=== PATIENT | male | born 1965 | race Caucasian/White ===

== ENCOUNTER 2019-08-04 21:48 | Inpatient (IN) | payer MEDICAID ==
[~2019-08-04] VITALS: Ht 167.6 cm; Wt 78.0 kg
[2019-08-04] MEDS ORDERED: SODIUM CHLORIDE 0.9% 1,000 ML IV ONE (22:01)
[2019-08-04] MEDS ORDERED: SODIUM CHLORIDE 0.9% 1000ML BAG (SEPSIS BOLUS) IV ONE (22:30)
[2019-08-04 22:50] LABS: BASOPHILS % 0.4 % (0.0-2.0); EOSINOPHILS % 0.1 % (0.0-5.0); HEMATOCRIT. 45.5 % (42.0-52.0); HEMOGLOBIN. 15.2 g/dL (14.0-18.0); LYMPHOCYTES % 13.1 % (20.0-50.0); MEAN CORPUSCULAR HEMOGLOBIN 29.4 pg (28.0-32.0); MEAN CORPUSCULAR VOLUME 88.2 fL (80.0-94.0); MEAN PLATELET VOLUME 8.7 fl (7.4-10.4); MONOCYTES % 9.3 % (2.0-8.0); NEUTROPHILS % 77.1 % (40.0-76.0); PLATELET 178 x1000/uL (130-400); RED BLOOD CELL COUNT 5.15 mill/uL (4.7-6.1); RED CELL DISTRIBUTION WIDTH 14.3 % (11.6-14.6)
[2019-08-04 22:54] LABS: CHLORIDE 89 mEq/L (98-107)
[2019-08-04 22:55] LABS: INR 1.4; PARTIAL THROMBOPLASTIN TIME 29.8 sec (23.4-31.0); PROTHROMBIN TIME 13.7 sec (9.6-11.0)
[2019-08-04 22:58] LABS: ETHANOL BLOOD 208 mg/dL
[2019-08-04 23:03] LABS: BETA HYDROXYBUTYRATE 0.1 mMol/L (0.0-0.3)
[2019-08-04 23:05] LABS: CLARITY URINE CLEAR (CLEAR); COLOR URINE YELLOW (YELLOW); KETONES URINE NEGATIVE (NEGATIVE); LEUKOCYTE ESTERASE URINE NEGATIVE (NEGATIVE); NITRITE URINE NEGATIVE (NEGATIVE); OCCULT BLOOD URINE NEGATIVE (NEGATIVE); PH URINE 5.5 (4.5-8.0); PROTEIN URINE 1+ (NEGATIVE); SPECIFIC GRAVITY URINE 1.023 (1.005-1.030); UROBILINOGEN URINE 0.2 E.U./dL (0.2-1.0)
[2019-08-04 23:15] LABS: *AMPHETAMINES SCREEN URINE NEGATIVE (NEGATIVE); *BARBITURATES SCREEN URINE NEGATIVE (NEGATIVE); *BENZODIAZEPINES SCREEN URINE NEGATIVE (NEGATIVE); *COCAINE SCREEN URINE NEGATIVE (NEGATIVE); CANNABINOID URINE SCREEN NEGATIVE (NEGATIVE); METHADONE URINE SCREEN NEGATIVE (NEGATIVE); OPIATES URINE SCREEN NEGATIVE (NEGATIVE); PHENCYCLIDINE URINE SCREEN NEGATIVE (NEGATIVE)
[2019-08-04] MEDS ORDERED: POTASSIUM CHLORIDE 20MEQ TABLET SR PO ONE (23:45)
[2019-08-05] MEDS ORDERED: INSULIN LISPRO 100 UNITS/ML SUBCUT NR
[2019-08-05] MEDS ORDERED: METOPROLOL TARTRATE 5MG/5ML VIAL IV ONE (00:45)
[2019-08-05] MEDS ORDERED: CLONIDINE 0.1MG TABLET PO PRN (01:30)
[2019-08-05] MEDS ORDERED: DEXTROSE 50% WATER 50ML SYRINGE IV PRN (01:30)
[2019-08-05] MEDS ORDERED: ONDANSETRON HCL 4MG/2ML INJ IV PRN (01:30)
[2019-08-05] MEDS ORDERED: ACETAMINOPHEN 325MG TABLET PO PRN (01:30)
[2019-08-05] MEDS ORDERED: LORAZEPAM 2MG/ML CPJ IV PRN (01:30)
[2019-08-05] MEDS ORDERED: DIPHENHYDRAMINE 50MG/ML VIAL IV PRN (01:30)
[2019-08-05] MEDS ORDERED: MAGNESIUM/ALUMINUM HYDROXIDE/SIMETHICONE 30ML UDC PO PRN (01:30)
[2019-08-05] MEDS ORDERED: POTASSIUM CHLORIDE INJ 40 MEQ in DEXT 5% WATER 250 ML IV NR (02:00)
[2019-08-05] MEDS ORDERED: MVI, ADULT NO.1 10 ML, FOLIC ACID 1 MG, THIAMINE HCL 100 MG in SODIUM CHLORIDE 0.9% 1,0... IV SCH ×4 (02:00)
[2019-08-05 02:29] VITALS: BP 145/95
[2019-08-05 02:31] VITALS: BP 145/95
[2019-08-05] MEDS ORDERED: METOPROLOL TARTRATE 25MG TABLET PO SCH (03:00)
[2019-08-05] MEDS ORDERED: METF-416 PO (03:22)
[2019-08-05] MEDS: METOPROLOL TARTRATE 25MG TABLET PO SCH ×3 (05:42→21:14)
[2019-08-05] MEDS: CHLORDIAZEPOXIDE 25MG CAPSULE PO SCH ×3 (05:42→21:14)
[2019-08-05] MEDS: DILTIAZEM HCL 60MG TABLET PO SCH ×3 (05:42→21:14)
[2019-08-05 07:35] LABS: BASOPHILS % 0.4 % (0.0-2.0); EOSINOPHILS % 0.4 % (0.0-5.0); HEMATOCRIT. 37.4 % (42.0-52.0); HEMOGLOBIN. 12.8 g/dL (14.0-18.0); LYMPHOCYTES % 17.9 % (20.0-50.0); MEAN CORPUSCULAR HEMOGLOBIN 29.9 pg (28.0-32.0); MEAN CORPUSCULAR VOLUME 87.5 fL (80.0-94.0); MEAN PLATELET VOLUME 8.9 fl (7.4-10.4); MONOCYTES % 9.6 % (2.0-8.0); NEUTROPHILS % 71.7 % (40.0-76.0); PLATELET 161 x1000/uL (130-400); RED BLOOD CELL COUNT 4.27 mill/uL (4.7-6.1); RED CELL DISTRIBUTION WIDTH 14.5 % (11.6-14.6)
[2019-08-05] MEDS: BLOOD SUGAR DIAGNOSTIC STRIP TEST SCH ×4 (07:40→21:11)
[2019-08-05 08:00] VITALS: BP 144/97
[2019-08-05] MEDS: SODIUM CHLORIDE 0.9% 1,000 ML IV SCH ×2 (08:31→20:00)
[2019-08-05] MEDS: FAMOTIDINE 20MG/2ML VIAL IV SCH ×2 (08:32→21:11)
[2019-08-05 08:44] LABS: CHLORIDE 101 mEq/L (98-107)
[2019-08-05] MEDS: INSULIN LISPRO 100 UNITS/ML SUBCUT SCH ×4 (08:50→21:14)
[2019-08-05] MEDS: INSULIN GLARGINE UD 100 UNITS/ML SYR SUBCUT SCH (11:54)
[2019-08-05 11:57] VITALS: BP 158/110
[2019-08-05] MEDS ORDERED: MAGNESIUM 4 G PREMIX 100 ML IV NR (14:00)
[2019-08-05 16:00] VITALS: BP 166/112
[2019-08-05] MEDS: BENAZEPRIL 10MG TABLET PO SCH (17:15)
[2019-08-05] MEDS: METFORMIN HCL 850MG TABLET PO SCH (18:10)
[2019-08-05 20:00] VITALS: BP 140/92
[2019-08-05] MEDS: TEMAZEPAM 15MG CAPSULE PO PRN (22:48)
[2019-08-06] VITALS: BP 148/97
[2019-08-06 04:00] VITALS: BP 136/91
[2019-08-06] MEDS: SODIUM CHLORIDE 0.9% 1,000 ML IV SCH (05:13)
[2019-08-06] MEDS: DILTIAZEM HCL 60MG TABLET PO SCH ×3 (06:04→21:48)
[2019-08-06] MEDS: CHLORDIAZEPOXIDE 25MG CAPSULE PO SCH ×3 (06:04→21:47)
[2019-08-06] MEDS: METOPROLOL TARTRATE 25MG TABLET PO SCH ×2 (06:04→13:21)
[2019-08-06 07:07] LABS: BASOPHILS % 0.8 % (0.0-2.0); HEMATOCRIT. 39.4 % (42.0-52.0); HEMOGLOBIN. 13.4 g/dL (14.0-18.0); LYMPHOCYTES % 34.2 % (20.0-50.0); MEAN CORPUSCULAR HEMOGLOBIN 29.9 pg (28.0-32.0); MEAN CORPUSCULAR VOLUME 87.9 fL (80.0-94.0); MEAN PLATELET VOLUME 8.8 fl (7.4-10.4); MONOCYTES % 9.8 % (2.0-8.0); NEUTROPHILS % 53.2 % (40.0-76.0); PLATELET 127 x1000/uL (130-400); RED BLOOD CELL COUNT 4.48 mill/uL (4.7-6.1); RED CELL DISTRIBUTION WIDTH 14.1 % (11.6-14.6)
[2019-08-06 07:19] LABS: CHLORIDE 103 mEq/L (98-107)
[2019-08-06 07:25] LABS: PHOSPHORUS 2.9 mg/dL (2.5-4.9)
[2019-08-06] MEDS: BLOOD SUGAR DIAGNOSTIC STRIP TEST SCH ×4 (07:40→21:49)
[2019-08-06 08:00] VITALS: BP 118/78
[2019-08-06] MEDS: METFORMIN HCL 850MG TABLET PO SCH (09:19)
[2019-08-06] MEDS: THIAMINE HCL 100MG TABLET PO SCH (09:19)
[2019-08-06] MEDS: INSULIN LISPRO 100 UNITS/ML SUBCUT SCH ×4 (09:20→21:48)
[2019-08-06] MEDS: FAMOTIDINE 20MG/2ML VIAL IV SCH (09:21)
[2019-08-06] MEDS: BENAZEPRIL 10MG TABLET PO SCH ×2 (09:23→21:46)
[2019-08-06] MEDS ORDERED: POTASSIUM CHLORIDE 20MEQ TABLET SR PO NR ×2 (11:15→14:00)
[2019-08-06 12:00] VITALS: BP 146/104
[2019-08-06] MEDS: INSULIN GLARGINE UD 100 UNITS/ML SYR SUBCUT SCH (13:14)
[2019-08-06] MEDS ORDERED: SITA100T11 PO (15:48)
[2019-08-06] MEDS ORDERED: GLIP5TAB3 PO (15:48)
[2019-08-06] MEDS ORDERED: AMLO10TA80 PO (15:52)
[2019-08-06] MEDS ORDERED: BENA20TA10 PO (15:52)
[2019-08-06] MEDS ORDERED: METO-539 PO (15:52)
[2019-08-06] MEDS ORDERED: RIVA20TA MT (15:52)
[2019-08-06] MEDS ORDERED: CHLO25TA2 PO (15:53)
[2019-08-06] MEDS ORDERED: CHOL200077 PO (15:55)
[2019-08-06 16:00] VITALS: BP 114/76
[2019-08-06] MEDS: RIVAROXABAN 10 MG TABLET PO SCH (16:14)
[2019-08-06] MEDS: METFORMIN HCL 500MG TABLET PO SCH (19:31)
[2019-08-06 20:00] VITALS: BP 123/91
[2019-08-06] MEDS ORDERED: FAMOTIDINE 20MG TABLET PO SCH (21:00)
[2019-08-06] MEDS: METOPROLOL TARTRATE 50MG TABLET PO SCH (21:47)
[2019-08-06] MEDS: TEMAZEPAM 15MG CAPSULE PO PRN (21:55)
[2019-08-06] MEDS ORDERED: METO25TA6 PO (22:24)
[2019-08-07] VITALS: BP 134/88
[2019-08-07 04:00] VITALS: BP 143/98
[2019-08-07 05:17] LABS: BASOPHILS % 0.8 % (0.0-2.0); EOSINOPHILS % 2.4 % (0.0-5.0); HEMATOCRIT. 37.9 % (42.0-52.0); LYMPHOCYTES % 35.4 % (20.0-50.0); MEAN CORPUSCULAR HEMOGLOBIN 30.3 pg (28.0-32.0); MEAN CORPUSCULAR VOLUME 88.5 fL (80.0-94.0); MONOCYTES % 8.9 % (2.0-8.0); NEUTROPHILS % 52.5 % (40.0-76.0); PLATELET 125 x1000/uL (130-400); RED BLOOD CELL COUNT 4.28 mill/uL (4.7-6.1)
[2019-08-07] MEDS: BLOOD SUGAR DIAGNOSTIC STRIP TEST SCH ×3 (06:23→17:40)
[2019-08-07] MEDS: DILTIAZEM HCL 60MG TABLET PO SCH ×2 (06:29→13:42)
[2019-08-07] MEDS: CHLORDIAZEPOXIDE 25MG CAPSULE PO SCH ×2 (06:29→13:40)
[2019-08-07 06:36] LABS: CHLORIDE 106 mEq/L (98-107)
[2019-08-07 06:46] LABS: PHOSPHORUS 3.9 mg/dL (2.5-4.9)
[2019-08-07 08:00] VITALS: BP 123/91
[2019-08-07] MEDS: INSULIN LISPRO 100 UNITS/ML SUBCUT SCH ×3 (08:10→18:10)
[2019-08-07] MEDS: METFORMIN HCL 500MG TABLET PO SCH ×2 (08:36→18:49)
[2019-08-07] MEDS: THIAMINE HCL 100MG TABLET PO SCH (08:36)
[2019-08-07] MEDS: BENAZEPRIL 10MG TABLET PO SCH (08:36)
[2019-08-07] MEDS: METOPROLOL TARTRATE 50MG TABLET PO SCH (08:37)
[2019-08-07 12:00] VITALS: BP 134/92
[2019-08-07] MEDS ORDERED: MAGNESIUM 4 G PREMIX 100 ML IV SCH (13:00)
[2019-08-07] MEDS ORDERED: INSULIN GLARGINE UD 100 UNITS/ML SYR SUBCUT SCH (14:00)
[2019-08-07 16:00] VITALS: BP 136/92
[2019-08-07] MEDS: RIVAROXABAN 10 MG TABLET PO SCH (17:02)
[2019-08-07 17:44] VITALS: BP 124/88
[2019-08-08] MEDS ORDERED: RIVAROXABAN 20 MG TABLET PO SCH (17:00)
== END 2019-08-07 19:26 | disposition home or self-care (01) | DRG 201 ==
LOC: ER 21:48 → ENRESERV 08-05 01:22 → 7WST 08-05 02:25
PROVIDERS: ADMIT Internal Medicine; ATTEND Internal Medicine
DX: I48.91 Unspecified atrial fibrillation (principal); G92 Toxic encephalopathy; E11.65 Type 2 diabetes mellitus with hyperglycemia; E83.42 Hypomagnesemia; I27.20 Pulmonary hypertension, unspecified; F10.10 Alcohol abuse, uncomplicated; I10 Essential (primary) hypertension; E87.6 Hypokalemia; Z79.84 Long term (current) use of oral hypoglycemic drugs
CPT/HCPCS: 36415; 71045; 80048; 80053; 80305; 80320; 81003; 82010; 82962; 83036; 83735; 83880; 84100; 84484; 85025; 93005; 93306; 93970; 99291; J1815; J2060; J3411; J3475; J3480; J3490; J7030; J7060; G0480

== ENCOUNTER 2020-08-21 10:13 | Emergency (ER) | payer MEDICAID ==
[~2020-08-21] VITALS: Ht 170.2 cm; Wt 73.0 kg
[~2020-08-21 10:13] MED LIST: AMLO10TA80 PO; BENA20TA10 PO; CHLO25TA2 PO; CHOL200077 PO; GLIP5TAB3 PO; METF-416 PO; METO25TA6 PO; RIVA20TA MT; SITA100T11 PO
[2020-08-21] MEDS ORDERED: CHLORDIAZEPOXIDE 25MG CAPSULE PO ONE (10:45)
[2020-08-21 10:59] LABS: BASOPHILS % 0.3 % (0.0-2.0); EOSINOPHILS % 0.3 % (0.0-5.0); HEMATOCRIT. 40.5 % (42.0-52.0); HEMOGLOBIN. 13.7 g/dL (14.0-18.0); LYMPHOCYTES % 12.5 % (20.0-50.0); MEAN CORPUSCULAR HEMOGLOBIN 31.1 pg (28.0-32.0); MEAN CORPUSCULAR VOLUME 91.6 fL (80.0-94.0); MONOCYTES % 7.2 % (2.0-8.0); NEUTROPHILS % 79.7 % (40.0-76.0); PLATELET 184 x1000/uL (130-400); RED BLOOD CELL COUNT 4.42 mill/uL (4.7-6.1); RED CELL DISTRIBUTION WIDTH 13.6 % (11.6-14.6)
[2020-08-21 11:04] LABS: CHLORIDE 97 mEq/L (98-107)
[2020-08-21 11:09] LABS: ETHANOL BLOOD 261 mg/dL
[2020-08-21] MEDS ORDERED: DILTIAZEM HCL 5MG/ML 5ML VIAL IV ONE (11:15)
[2020-08-21] MEDS ORDERED: POTASSIUM CHLORIDE 20MEQ TABLET SR PO ONE (11:30)
[2020-08-21 11:40] VITALS: BP 139/89
== END 2020-08-21 11:51 | disposition home or self-care (01) ==
LOC: ER 10:13
DX: I48.91 Unspecified atrial fibrillation (principal); F10.129 Alcohol abuse with intoxication, unspecified; Y90.8 Blood alcohol level of 240 mg/100 ml or more; E11.9 Type 2 diabetes mellitus without complications; I10 Essential (primary) hypertension; Z86.73 Personal history of transient ischemic attack (TIA), and cerebral infarction without residual deficits; Z98.890 Other specified postprocedural states
CPT/HCPCS: 36415; 71045; 80053; 80320; 83880; 84484; 85025; 93005; 99285; G0480

== ENCOUNTER 2020-09-10 21:21 | Emergency (ER) | payer MEDICAID ==
[~2020-09-10] VITALS: Ht 177.8 cm; Wt 69.0 kg
[2020-09-10] MEDS ORDERED: SODIUM CHLORIDE 0.9% 1,000 ML IV ONE ×2 (21:45→23:30)
[2020-09-10 22:15] LABS: EOSINOPHILS % 0.6 % (0.0-5.0); HEMOGLOBIN. 13.8 g/dL (14.0-18.0); LYMPHOCYTES % 31.5 % (20.0-50.0); MEAN CORPUSCULAR HEMOGLOBIN 30.8 pg (28.0-32.0); MEAN CORPUSCULAR VOLUME 89.5 fL (80.0-94.0); MONOCYTES % 7.2 % (2.0-8.0); NEUTROPHILS % 59.7 % (40.0-76.0); PLATELET 230 x1000/uL (130-400); RED BLOOD CELL COUNT 4.47 mill/uL (4.7-6.1); RED CELL DISTRIBUTION WIDTH 13.4 % (11.6-14.6)
[2020-09-10 22:20] LABS: CHLORIDE 99 mEq/L (98-107)
[2020-09-10 22:35] LABS: ETHANOL BLOOD 316 mg/dL
[2020-09-10 22:46] LABS: CLARITY URINE CLEAR (CLEAR); COLOR URINE YELLOW (YELLOW); KETONES URINE NEGATIVE (NEGATIVE); LEUKOCYTE ESTERASE URINE NEGATIVE (NEGATIVE); NITRITE URINE NEGATIVE (NEGATIVE); OCCULT BLOOD URINE NEGATIVE (NEGATIVE); PROTEIN URINE NEGATIVE (NEGATIVE); SPECIFIC GRAVITY URINE 1.018 (1.005-1.030); UROBILINOGEN URINE 0.2 E.U./dL (0.2-1.0)
[2020-09-10 23:13] LABS: *AMPHETAMINES SCREEN URINE NEGATIVE (NEGATIVE); *BARBITURATES SCREEN URINE NEGATIVE (NEGATIVE)
[2020-09-10 23:14] LABS: *BENZODIAZEPINES SCREEN URINE NEGATIVE (NEGATIVE); *COCAINE SCREEN URINE NEGATIVE (NEGATIVE); METHADONE URINE SCREEN NEGATIVE (NEGATIVE); OPIATES URINE SCREEN NEGATIVE (NEGATIVE); PHENCYCLIDINE URINE SCREEN NEGATIVE (NEGATIVE)
[2020-09-10 23:15] LABS: CANNABINOID URINE SCREEN NEGATIVE (NEGATIVE)
[2020-09-10] MEDS ORDERED: CEPH500C2 MT (23:23)
[2020-09-10] MEDS ORDERED: CEPHALEXIN 250MG CAPSULE PO ONE (23:30)
[2020-09-10] MEDS ORDERED: INSULIN REGULAR (HUMULIN R) 300UNITS/3ML VIAL SUBCUT ONE (23:30)
[2020-09-11 00:32] VITALS: BP 132/90
== END 2020-09-11 00:33 | disposition home or self-care (01) ==
LOC: ER 21:21
DX: T51.0X1A Toxic effect of ethanol, accidental (unintentional), initial encounter (principal); F10.129 Alcohol abuse with intoxication, unspecified; Y90.8 Blood alcohol level of 240 mg/100 ml or more; R53.1 Weakness; R42 Dizziness and giddiness; L02.212 Cutaneous abscess of back [any part, except buttock and flank]; E11.65 Type 2 diabetes mellitus with hyperglycemia; Y92.89 Other specified places as the place of occurrence of the external cause; Z79.84 Long term (current) use of oral hypoglycemic drugs
CPT/HCPCS: 36415; 80053; 80305; 80320; 81003; 85025; 93005; 96360; 96372; 99284; J1815; J7030; G0480